=== PATIENT | male | born 1960 | race Hispanic/Latino ===

== ENCOUNTER 2025-04-01 00:39 | Inpatient (IN) | payer MEDICARE, SELFPAY ==
[2025-03-31 17:22] VITALS: BP 141/87
[2025-03-31 17:40] LABS: % Basophils 0.3 % (0-2); % Eosinophils 0.2 % (0-6); % Immature Granulocytes 0.3 % (0-0.5); % Lymphocytes 8.5 % (20.5-51.1); % Monocytes 10.7 % (1.7-9.3); Absolute Monocytes 1.2 10^3/uL (0.1-0.6); Absolute Neutrophils 9.2 10^3/uL (1.4-6.5); Hemoglobin 14.4 g/dL (13.0-18.0); Mean Corp Hgb Conc. 32.7 g/dL (33.0-37.0); Mean Corpuscular Hgb 29.3 pg (27.0-31.0); Mean Corpuscular Volume 89.6 fL (80.0-94.0); Mean Platelet Volume 10.2 fL (7.4-10.4); Nucleated Red Blood Cells % 0 % (-); Platelet Count 218 10^3/uL (130-400); Red Blood Cell Count 4.91 10^6/uL (4.70-6.10); Red Cell Dist. Width 13.1 % (11.5-14.5); White Blood Cell Count 11.5 10^3/uL (4.8-10.8)
[2025-03-31 18:05] LABS: ALT (SGPT) 23 U/L (0-50); AST (SGOT) 22 U/L (17-59); Albumin 4.2 g/dl (3.5-5.0); Alkaline Phosphatase 53 U/L (38-126); Blood Urea Nitrogen 18 mg/dl (9-20); Calcium 9.3 mg/dl (8.4-10.2); Carbon Dioxide 26 mmol/L (22-30); Chloride 106 mmol/L (98-107); Glucose 106 mg/dl (70-99); Sodium 138 mmol/L (135-145); Total Protein 6.8 g/dl (6.3-8.2); eGFR > 60.00
[2025-03-31 19:12] VITALS: BP 131/81
--- NOTE | 2025-03-31 21:13 | ED.GENMED ---
History of Present Illness
General
Chief Complaint: Skin Problem
Source: patient
Time Seen by Provider: 03/31/25 20:37
History of Present Illness
History of Present Illness:
64-year-old male presents to the emergency room complaining of pain, redness, swelling of his right lower extremity. Patient suffered a laceration about a week ago which he did not seek care for. Approximately 4 days ago he began having some
redness and swelling of the lower extremity. This redness and swelling has now spread to involve the entire calf and up to his knee. Patient endorses some chills. He has significant discomfort while trying to weight-bear on the right leg. He
denies any nausea or vomiting. He denies any medication allergies.
Phy Exam
Physical Exam
Physical Exam:
General: Awake, Alert, Oriented X3. No acute distress.
Vitals: unremarkable
Head: Atraumatic
Eyes: Pupils equal, EOMI
Throat: Airway intact, no exudates
Neck: Trachea midline
Lungs: Clear and equal b/l
Heart: Regular rate, no murmurs
Abd: Soft, Nontender, No pulsatile mass
Neuro: Nonfocal
Skin: Warm, dry, no rash
Extremities: pulses equal b/l, significant erythema, swelling and tenderness to palpation right lower extremity. There is a approximate 1.5 cm healing laceration noted on the medial lower leg about 3 cm above the ankle. No purulent drainage. No
fluctuance noted.
Sepsis
Sepsis Screening
Sepsis Assessment: Sepsis
Sepsis Screen
Sepsis Screen: Sepsis
Date: 04/01/25
Time: :25
Course
Orders/Labs/Results
Orders:
Orders
03/31/25 17:31
CMP [Comprehensive Metabolic Panel] Urgent
Complete Blood Count/With Diff Urgent
03/31/25 21:11
CeFAZolin 2 GRAM [Ancef] 2 grams in 10 ml IV NOW
03/31/25 21:13
US Periph Venous LOWER Ext RT Urgent
Comment:
Reason For Exam: swelling/pain
03/31/25 21:16
Lactic Acid Q4H
Comment: CANCEL 2nd LACTIC ACID IF 1st LACTIC ACID IS LESS THAN 2
Blood Culture Q30M
BAILEY Source: Blood/Venous
Specimen Description:
Blood Culture Q30M
BAILEY Source: Blood/Venous
Specimen Description:
03/31/25 21:19
Acetaminophen [Tylenol] 1,000 mg PO NOW STA
03/31/25 23:00
Flush (0.9% Sodium Chloride) [Flush (Nss)] See Dose Instructions IV PER PROTOCOL
03/31/25 23:16
Tetanus/Diphth/Acelpertussis [Adacel] 0.5 ml IM .ONCE ONE
03/31/25 23:18
Admit/Transfer Patient As Directed
Co-Sign Provider:
Level of Care: Inpatient admission
Assign to:: Medical/Surgical
Physician / Group: Luis
Diagnosis: Cellulitis
Reason for Hospitalization: Cellulitis
Expected length of stay greater than two midnights?: Yes
ELOS- Estimated Length of Stay in days: 2
I certify the patient meets the requirements for IP care: Yes
PRN Pain Medication Management As Directed
May give lesser potent ordered pain med per pt: Yes
preference::
Protocol:: Medication orders for pain may be administered in a
manner that supports deferring to patient preference
when the pt is:
- Requesting an ordered lesser potent pain medication.
Least to most potent pain medications are defined
as: acetaminophen < NSAID < tramadol < opioids
(morphine, oxycodone, hydromorphone).
- Requesting a lesser dose of the same medication IF
ORDERED.
- Requesting a less intrusive route of administration
if both routes are prescribed by the provider (PO <
IV).
03/31/25 23:19
Code Status As Directed
Resuscitation Status: Full Code
04/01/25 00:46
Acetaminophen [Tylenol] 650 mg PO Q4HPRN PRN
Ketorolac [Toradol] 15 mg IV Q6HPRN PRN
Lactated Ringers [Lr] 1,000 ml IV 125 mls/hr
04/01/25 00:46
Activity As Directed
Activity Level: Ambulate
I/O [Intake/ Output] As Directed
Frequency: Per unit guidelines
Vital Signs As Directed
Frequency: Per unit guidelines
DX Deep Vein Thrombosis Video Routine
04/01/25 Breakfast
Regular
At Your Request: Full Participation
Does patient need a safe tray?: No
Basic Metabolic Panel IN AM
Complete Blood Count/No Diff IN AM
CeFAZolin 2 GRAM [Ancef] 2 grams in 10 ml IV Q8H
04/01/25 18:00
Enoxaparin Sodium [Lovenox] 40 mg SC QPM
Abnormal Lab Results
03/31/25
17:31
WBC 11.5 H 10^3/uL
(4.8-10.8)
MCHC 32.7 L g/dL
(33.0-37.0)
Absolute Neuts (auto) 9.2 H 10^3/uL
(1.4-6.5)
Absolute Lymphs (auto) 1.0 L 10^3/uL
(1.2-3.4)
Absolute Monos (auto) 1.2 H 10^3/uL
(0.1-0.6)
Neutrophils % 80.0 H %
(42.2-75.2)
Lymphocytes % 8.5 L %
(20.5-51.1)
Monocytes % 10.7 H %
(1.7-9.3)
Glucose 106 H mg/dl
(70-99)
Total Bilirubin 2.0 H mg/dl
(0.2-1.3)
03/31/25 17:31
03/31/25 17:31
Vital Signs
Initial and Last Documented VS:
Initial Vital Signs
Temp Pulse Resp BP Pulse Ox
98.8 F 83 18 141/87 100
03/31/25 17:22 03/31/25 17:22 03/31/25 17:22 03/31/25 17:22 03/31/25 17:22
Last Documented Vital Signs
Temp Pulse Resp BP Pulse Ox
98.8 F 73 16 120/73 100
04/01/25 01:02 04/01/25 01:02 04/01/25 01:02 04/01/25 01:02 04/01/25 01:02
MDM/Problems Addressed
Differential Diagnosis Includes:
cellulitis, sepsis, dvt
MDM/Problems Addressed:
Patient presents with significant erythema, swelling and tenderness of the right lower extremity. DVT studies negative. Presentation most consistent with cellulitis/erysipelas. Patient has lymphangitis noted all way up to the groin. He has
rigors at the time of my evaluation. Labs show mildly elevated white blood cell count. Chemistries are unremarkable. Given fever, rigors will hospitalize for IV antibiotics.
*Radiology
Radiology exam reviewed: radiology read reviewed
*Pulse Oximetry
Patient hypoxic: no
*Critical Care Note
Total Time (30-74mins, 75-104mins- exclusive of procedures): Not Applicable
ED Attending Note
-
Portions of this chart may have been created with voice recognition software.� Occasional wrong word or��sound alike� substitutions may have occurred due to the inherent limitations of voice recognition software.
Discharge Plan
Departure
Patient Disposition: Admit
Date of Disposition: 03/31/25
Time of Disposition: 22:33
Admit to: Med/Surg
Presentation/result/management discussed w/ accepting MD/DO: Hospitalist
Condition: Fair
Discharge Problem:
Cellulitis, Sepsis
Interventions
Interventions:
*Risk Screen - Suicide Last Done: 03/31/25 17:22
*General Assessment Last Done: 03/31/25 17:22
*Neglect/Abuse Screening Last Done: 03/31/25 21:18
*ED- Fall Risk Assessment Last Done: 03/31/25 21:18
*ED COVID-19 Vaccine History Last Done: 04/01/25 00:47
*Nursing Disposition Last Done: 04/01/25 00:30
ED-Skin Assessment Last Done: 03/31/25 21:24
Discharge Date and Time
Discharge Date/Time: 04/01/25 00:30
[2025-03-31 21:14] VITALS: BMI 31.2
[2025-03-31] MEDS: TYLENOL 1000 MG PO (21:21)
[2025-03-31 21:38] LABS: Lactic Acid 1.4 mmol/L (0.7-2.0)
[2025-03-31 21:53] VITALS: BP 133/69
[2025-03-31] MEDS: ANCEF 10 IV (21:53)
[2025-03-31 22:00] VITALS: BP 115/73
[2025-03-31 23:00] VITALS: BP 117/62
--- NOTE | 2025-03-31 23:22 | HPS.HSE ---
Family Physician
-
Family Physician: * NONE
Chief Complaint
-
RLE pain, swelling, redness.
History of Present Illness
Patient is a 64y M with no significant PMH who presents to ED complaining of RLE pain, swelling and redness. Patient states that he bumped his leg on a piece of metal in his barn last Friday. He suffered a small laceration to the medial aspect
of the R lower leg at that time. Over the weekend, he noted increased pain in the lower leg / calf area. His pain progressed such that he had difficulty walking early this week. He reports development of shaking chills / cold sweats. Today,
patient presented to the Urgent Care for further evaluation. After exam, he was referred to the ED for further evaluation.
Medical History
Past Medical History
Past Medical History: Reports None
Past Surgical History: Reports None
Social History
Tobacco: Former Smoker (Quit smoking 30 years ago.)
Alcohol: Occasional (Rare.)
Drug: None
Family History
Family History: Not pertinent
Allergies / Home Medications
Allergies reflects when Allergies were last updated in [facility].
Home Medications with original date entered in [facility]
Allergy/Medication List:
Allergies
Allergy/AdvReac Type Severity Reaction Status Date / Time
Penicillins Allergy Unknown Verified 03/31/25 17:23
Home Medications
No Meds [No Current Medications] 03/31/25
Review of Systems
-
History Source: Patient
A 12 point ROS was completed and negative except as noted: Yes
Constitutional: Reports Fever and Chills; Denies Fatigue
Respiratory: Denies Cough or Trouble Breathing
Cardiac: Denies Chest Pain or Palpitations
Abdomen/GI: Denies Abdominal Pain, Nausea, Vomiting or Diarrhea
: Denies Dysuria or Frequency
Musculoskeletal: Reports Edema; Denies Joint Pain
Skin: Reports Other (Swelling / pain / streaking redness RLE)
Psych: Denies Depression or Anxiety
Physical Exam
Vital Signs
Vital Signs
Temp Pulse Resp BP Pulse Ox
99.9 F 87 18 117/62 96
03/31/25 23:19 03/31/25 23:00 03/31/25 23:00 03/31/25 23:00 03/31/25 22:00
Physical Exam
General: Other (64y M in no acute distress.)
HEENT: Other (Dry MM. Neck supple.)
Respiratory: Clear; No Wheezes, Rales or Rhonchi
Cardiac: S1/S2 and Regular Rhythm; No Murmur
Musculoskeletal: Other (Edema / tenderness R calf.)
Skin: Other (Erythema RLE encompassing the calf and with lymphangitis along the posterio-medial aspect of the leg all the way to the R groin. Pos local adenopathy. 3cm healing laceration medial R lower leg - no bleeding / discharge.)
Laboratory Results
-
03/31/25 17:31
03/31/25 17:31
Laboratory Results
Lactic Acid 1.4 mmol/L (0.7-2.0) 03/31/25 21:16
Total Bilirubin 2.0 mg/dl (0.2-1.3) H 03/31/25 17:31
AST 22 U/L (17-59) 03/31/25 17:31
ALT 23 U/L (0-50) 03/31/25 17:31
Alkaline Phosphatase 53 U/L (38-126) 03/31/25 17:31
Impression/Plan
-
A/P: Patient is a 64y M with no significant PMH who presents to ED complaining of RLE pain, swelling and redness that has been progressing over the past week.
RLE Cellulitis with Lymphangitis - secondary to laceration
Sepsis secondary to the above
- Admit for further evaluation and treatment.
- Patient presents with fever, tachycardia, tachypnea, leukocytosis and evident cellulitis of the RLE on exam.
- IV abx with Ancef and follow for clinical improvement.
- Update tetanus booster given preceding laceration on unidentified piece of metal in his barn.
- Supportive care including IVFs, pain control, etc.
- US in the ED negative for DVT.
- Consider advanced imaging of the LE if symptoms worsen or persist.
DVT Prophylaxis: Lovenox
Code Status: Full
[2025-03-31] MEDS: ADACEL 0.5 ML IM (23:23)
[2025-04-01] MEDS: LR 1000 IV ×2 (01:00→08:18)
[2025-04-01 01:02] VITALS: BP 120/73
--- NOTE | 2025-04-01 01:19 | TRANSFER ---
rec'd pt from ED at 0100. pt ambulated from stretcher to bed with assistance. pt c/o pain to R leg when ambulating, currently 01/10. pt AAOx3, VSS , call [facility] within reach. POC ongoing.
[2025-04-01 04:01] VITALS: BMI 28.0
[2025-04-01] MEDS: ANCEF 10 IV ×3 (05:08→21:48)
[2025-04-01] MEDS: TYLENOL 650 MG PO ×2 (06:36→21:48)
[2025-04-01 06:39] LABS: Hematocrit 38.5 % (39.0-52.0); Hemoglobin 12.8 g/dL (13.0-18.0); Mean Corp Hgb Conc. 33.2 g/dL (33.0-37.0); Mean Corpuscular Hgb 29.2 pg (27.0-31.0); Mean Corpuscular Volume 87.9 fL (80.0-94.0); Mean Platelet Volume 10.4 fL (7.4-10.4); Platelet Count 192 10^3/uL (130-400); Red Blood Cell Count 4.38 10^6/uL (4.70-6.10); Red Cell Dist. Width 13.1 % (11.5-14.5)
[2025-04-01 07:02] LABS: Blood Urea Nitrogen 15 mg/dl (9-20); Calcium 8.8 mg/dl (8.4-10.2); Carbon Dioxide 21 mmol/L (22-30); Chloride 108 mmol/L (98-107); Estimated Creatinine Clearance 94 ml/min; Glucose 121 mg/dl (70-99); Sodium 136 mmol/L (135-145); eGFR > 60.00
[2025-04-01 08:14] VITALS: BP 122/66
[2025-04-01 08:19] LABS: ALT (SGPT) 17 U/L (0-50); AST (SGOT) 18 U/L (17-59); Albumin 3.4 g/dl (3.5-5.0); Alkaline Phosphatase 47 U/L (38-126); Direct Bilirubin 0.3 mg/dl (0.0-0.4); LDH 145 U/L (120-246); Total Bilirubin 1.6 mg/dl (0.2-1.3); Total Protein 5.9 g/dl (6.3-8.2)
--- NOTE | 2025-04-01 10:24 | W.PN.HOSP.TC ---
Today's Communication/Plan
-
see PN
Assessment / Plan
Assessment / Plan
64yo M with no significant PMHx came with 1 week of progressive RLE swelling and redness after superfiscial trauma to the R calf
A/P:
#RLE cellulitis with thrombophlebitis with sepsis on admission 2/2 fever, leukocytosis and tachycardia
appears non-purulent
US neg for DVT
ordered soft tissue RLE US to eval for complications (abscess)
Cont Ancef as patient improving
Follow CBC and fever curve
BCX NTD
DVT ppx lovenox
Full code
I have spent at least 38min reviewing chart, test results and providing direct patient care
Anticipated Discharge: 24 - 48 hours
Subjective/Interval History
-
Date of Service: April 01, 2025
Objective Data
-
Labs:
Laboratory Results
04/01/25
06:12
WBC 10.0
Hgb 12.8 L
Hct 38.5 L
Plt Count 192
Sodium 136
Potassium 4.0
Chloride 108 H
Carbon Dioxide 21 L
BUN 15
Creatinine 0.8
Glucose 121 H
Calcium 8.8
Total Bilirubin 1.6 H
AST 18
ALT 17
Alkaline Phosphatase 47
Vital Signs:
Vital Signs
Temp Pulse Resp BP Pulse Ox
98.5 F 81 18 122/66 96
04/01/25 08:14 04/01/25 08:14 04/01/25 08:14 04/01/25 08:14 04/01/25 08:14
I&O
03/31/25 04/01/25 04/02/25
06:59 06:59 06:59
Intake Total 1355 / 1355 240 / 240
Balance 1355 / 1355 240 / 240
Review of Systems
-
History Source: Patient
All other systems: Reviewed and negative
Musculoskeletal: Reports Other (RLE swelling, pain and redness)
Physical Exam
-
General: No Apparent Distress
HEENT: Normocephalic
Skin: Other (RLE swelling with extension of cord like redness to the upper thigh)
Neuro: Awake, Alert, Oriented and AO x 3
Psych: Calm
[2025-04-01 15:47] VITALS: BP 124/64
[2025-04-01] MEDS: LOVENOX SC (17:41)
[2025-04-01 23:34] VITALS: BP 130/66
[2025-04-02] MEDS: ANCEF 10 IV (05:36)
[2025-04-02 07:00] VITALS: BP 127/66
--- NOTE | 2025-04-02 09:16 | PHA.VAN.IN ---
Assessment
- Assessment
Renal Function: Appears similar to baseline
Concomitant Antimicrobials: cefazolin
AUC Dosing Plan
- Dosing Variables
Dosing Weight (kg): 88
Dosing CrCl (ml/min): 94
Vd coefficient (L/kg): 0.7
- Empiric Dosing
Initial / Loading Dose: 2000mg - administration pending
Maintenance Regimen: Vanc 1250mg Q12H - starting at 1800
Estimated AUC (mcg*h/mL): 523
Estimated Peak (mcg*h/mL): 32
Estimated Trough (mcg/ml): 13.6
Estimated Half Life (H): 8.4
- Monitoring
No levels ordered at this time: consider levels in next few days
Pharmacokinetics Vancomycin I
- -
Patient Age: 64
Patient Sex: Male
Vancomycin Day #: 1
Indication: Skin And Soft Tissue
Requesting Provider: Dr. Leon
Pertinent Antimicrobial Allergies:
penicillins - unknown
Height / Weight:
Height 5 ft 10 in
Actual Weight 88.36 kg
- Vital Signs / Lab Results
Temp Pulse Resp BP Pulse Ox
99.3 F 72 16 127/66 95
04/02/25 07:00 04/02/25 07:00 04/02/25 07:00 04/02/25 07:00 04/02/25 07:00
Lab Results - Hematology
03/31/25 04/01/25
17: 06:12
WBC 11.5 H 10.0
Lab Results - Chemistry
03/31/25 04/01/25
17: 06:12
BUN 18 15
Creatinine 1.0 0.8
Estimated Creat Clear 94
Albumin 4.2 3.4 L
03/31/25 04/01/25
21:16 01:15
Lactic Acid 1.4 Cancelled
Microbiology Results
03/31/25 21:16 Blood Culture - Preliminary
Blood/Venous No Growth in 24 hours- Final report to follow
03/31/25 21:16 Blood Culture - Preliminary
Blood/Venous No Growth in 24 hours- Final report to follow
[2025-04-02] MEDS: TYLENOL 650 MG PO ×2 (09:36→17:48)
[2025-04-02] MEDS: VANCOCIN 540 MG IV (10:53)
[2025-04-02] MEDS: OCEAN, SALINE MIST 2 SPRAYS NASAL (11:00)
--- NOTE | 2025-04-02 12:54 | W.PN.HOSP.TC ---
Today's Communication/Plan
-
switch to Vanco
Assessment / Plan
Assessment / Plan
64yo M with no significant PMHx came with 1 week of progressive RLE swelling and redness after superfiscial trauma to the R calf
A/P:
#RLE cellulitis with thrombophlebitis with sepsis on admission 2/2 fever, leukocytosis and tachycardia
appears non-purulent, poor responce to Ancef - switch to Vanco
No signs of compartment syndrome
US neg for DVT
soft tissue RLE US ruled out complications (abscess)
Cont Ancef as patient improving
Follow CBC and fever curve
BCX NTD
DVT ppx lovenox
Full code
I have spent at least 58min reviewing chart, test results and providing direct patient care
Anticipated Discharge: 24 - 48 hours
Subjective/Interval History
-
Date of Service: April 02, 2025
Objective Data
-
Vital Signs:
Vital Signs
Temp Pulse Resp BP Pulse Ox
99.3 F 72 16 127/66 95
04/02/25 07:00 04/02/25 07:00 04/02/25 07:00 04/02/25 07:00 04/02/25 07:00
I&O
04/01/25 04/02/25 04/03/25
06:59 06:59 06:59
Intake Total 1355 / 1355 1200 / 1200
Balance 1355 / 1355 1200 / 1200
Review of Systems
-
History Source: Patient
All other systems: Reviewed and negative
Physical Exam
-
General: No Apparent Distress
HEENT: Normocephalic
Respiratory: Clear to Auscultation
Cardiac: Regular Rhythm
GI: Soft, Nontender and Nondistended
Skin: Other (RLE redness)
Neuro: Awake, Alert, Oriented and AO x 3
[2025-04-02 15:00] VITALS: BP 112/63
[2025-04-02] MEDS: VANCOCIN 275 MG IV (17:37)
[2025-04-02] MEDS: LOVENOX 40 MG SC (17:39)
[2025-04-02 23:15] VITALS: BP 132/68
[2025-04-03] MEDS: VANCOCIN 275 MG IV (05:20)
[2025-04-03] MEDS: TYLENOL 650 MG PO ×3 (05:35→21:46)
[2025-04-03 07:24] VITALS: BP 99/64
[2025-04-03 08:00] LABS: % Basophils 0.5 % (0-2); % Eosinophils 1.4 % (0-6); % Immature Granulocytes 0.3 % (0-0.5); % Monocytes 9.8 % (1.7-9.3); Absolute Eosinophils 0.1 10^3/uL (0-0.7); Absolute Lymphocytes 0.8 10^3/uL (1.2-3.4); Absolute Monocytes 0.7 10^3/uL (0.1-0.6); Absolute Neutrophils 5.1 10^3/uL (1.4-6.5); Hematocrit 35.4 % (39.0-52.0); Hemoglobin 11.6 g/dL (13.0-18.0); Mean Corp Hgb Conc. 32.8 g/dL (33.0-37.0); Mean Corpuscular Volume 88.5 fL (80.0-94.0); Mean Platelet Volume 10.6 fL (7.4-10.4); Nucleated Red Blood Cells % 0 % (-); Platelet Count 228 10^3/uL (130-400); Red Cell Dist. Width 13.1 % (11.5-14.5); White Blood Cell Count 6.7 10^3/uL (4.8-10.8)
[2025-04-03 08:36] LABS: ALT (SGPT) 105 U/L (0-50); AST (SGOT) 120 U/L (17-59); Alkaline Phosphatase 50 U/L (38-126); Blood Urea Nitrogen 16 mg/dl (9-20); Calcium 8.5 mg/dl (8.4-10.2); Carbon Dioxide 23 mmol/L (22-30); Chloride 109 mmol/L (98-107); Estimated Creatinine Clearance 94 ml/min; Glucose 153 mg/dl (70-99); Sodium 137 mmol/L (135-145); Total Bilirubin 0.8 mg/dl (0.2-1.3); Total Protein 5.3 g/dl (6.3-8.2); eGFR > 60.00
[2025-04-03 09:29] VITALS: BP 111/68
--- NOTE | 2025-04-03 10:10 | PHA.VAN.FU ---
Vancomycin Assessment / Plan
- Assessment
Renal Function: Stable
WBC's are: WNL
In the past 24 hrs, patient has been: Afebrile
- Dosing Plan
Continue: Vanc 1250mg Q12H
- Monitoring Plan
No level(s) ordered at this time: consider levels in next few days
- Follow Up
Pharmacy will continue to follow.
Vancomycin Follow UP
- -
Patient Age: 64
Patient Sex: Male
Vancomycin Day #: 2
Indication: Skin And Soft Tissue
Requesting Provider: Dr. Leon
Pertinent Antimicrobial Allergies:
penicillins - unknown
Height / Weight:
Height 5 ft 10 in
Actual Weight 88.36 kg
- Vital Signs / Lab Results
Temp Pulse Resp BP Pulse Ox
98.2 F 63 16 111/68 97
04/03/25 09:29 04/03/25 09:29 04/03/25 09:29 04/03/25 09:29 04/03/25 07:24
Lab Results - Hematology
03/31/25 04/01/25 04/03/25
17:31 06:12 06:42
WBC 11.5 H 10.0 6.7
Lab Results - Chemistry
03/31/25 04/01/25 04/03/25
17:31 06:12 06:42
BUN 18 15 16
Creatinine 1.0 0.8 0.8
Estimated Creat Clear 94 94
Albumin 4.2 3.4 L 3.0 L
03/31/25 04/01/25
21:16 01:15
Lactic Acid 1.4 Cancelled
Microbiology Results
03/31/25 21:16 Blood Culture - Preliminary
Blood/Venous No Growth in 48 hours- Final report to follow
03/31/25 21:16 Blood Culture - Preliminary
Blood/Venous No Growth in 48 hours- Final report to follow
04/01/25 06:22 MRSA Screen - Final
Nose No Methicillin Resistant Staphylococcus aureus isolated.
[2025-04-03 10:52] LABS: Creatine Phosphokinase 30 U/L (55-170)
--- NOTE | 2025-04-03 12:05 | CON.ID ---
Consultation
-
Date/Time Consultation Requested: April 03, 2025 1131
Date/Time Consultation Performed: April 03, 2025 1215
Requesting Provider: Dr. Hung Leon
Performing Provider: Dr. Anahy Garza
Reason for Consultation: Cellulitis not improving
Chief Complaint / Past History
Chief Complaint
Right leg swelling and redness
History of Present Illness
64-year-old male without past medical history who presented to the hospital on March 31 due to right leg edema and erythema. He states that on March 25, he banged his right lovett against a metal object in the barn. He had a small scrape. He
was fine until March 31 when his right leg became very swollen and red. The redness spread from the leg up his groin. He had chills. He went to urgent care who sent him to the ER. In the ER he was febrile 103.2. White count 11.5. Blood
cultures negative to date. Peripheral vascular ultrasound no DVT. Initially he was on cefazolin x 2 days without improvement, then changed to vancomycin yesterday. Today the redness continued to expand outside of the marked line. He did receive
tetanus vaccine in the hospital. He reports no animals in the barn. The barn stored equipments.
Past History
Past Medical History: None
Past Surgical History: None
Allergy History:
Penicillins Allergy (Verified 03/31/25 17:23)
Unknown
Medications Reviewed: Yes
Current Antibiotics:
Cefazolin (03/31-04/01)
Vancomycin d2
Social History
Tobacco: Former Smoker
Alcohol: Occasional
Drug: None
Family History
Family History: Not Pertinent
Review of Systems
Review of Systems
General: Chills; Negative Change in Appetite
HEENT: Sinus Problems; Negative Headache or Pharyngitis
Cardiovascular: Negative Chest Pain
Respiratory: Negative Dyspnea or Cough
Gasteroenterology: Negative Nausea, Vomiting or Diarrhea
Genital / Urological: Negative Flank Pain
Neurological: Negative Dizziness
All systems: All other systems were reviewed and were negative
Vital Signs
Temp Pulse Resp BP Pulse Ox
98.2 F 63 16 111/68 97
04/03/25 09:29 04/03/25 09:29 04/03/25 09:29 04/03/25 09:29 04/03/25 07:24
Physical Exam
Physical Exam
Constitutional: Non-toxic
Head: Other (No frontal or max or sinus tenderness)
Eyes: No Conjunctival Hemorrhage and Sclera Anicteric
Cardiovascular: Regular Rate and S1/S2
Pulmonary: Clear
Gastrointestinal: Soft, Non Tender, Non Distended and Normal Bowel Sounds
Genito-Urinary: Negative Suprapubic Tenderness or CVA Tenderness
Extremities: Edema (RLE 3+ edema), Erythema (RLE bright erythema from ankle up the knee to groin, erythema extending past marked line on thigh) and Other (Right medial calf with small scab)
Neurological: AO x 3
Lab / Diagnostic Study Results
04/03/25 06:42
04/03/25 06:42
Abs Immat Gran (auto) 0.0 10^3/uL (0-0.05) 04/03/25 06:42
Absolute Neuts (auto) 5.1 10^3/uL (1.4-6.5) 04/03/25 06:42
Absolute Lymphs (auto) 0.8 10^3/uL (1.2-3.4) L 04/03/25 06:42
Absolute Monos (auto) 0.7 10^3/uL (0.1-0.6) H 04/03/25 06:42
Absolute Basos (auto) 0.0 10^3/uL (0-0.2) 04/03/25 06:42
Immature Gran % 0.3 % (0-0.5) 04/03/25 06:42
Neutrophils % 76.0 % (42.2-75.2) H 04/03/25 06:42
Lymphocytes % 12.0 % (20.5-51.1) L 04/03/25 06:42
Monocytes % 9.8 % (1.7-9.3) H 04/03/25 06:42
Eosinophils % 1.4 % (0-6) 04/03/25 06:42
Basophils % 0.5 % (0-2) 04/03/25 06:42
Lactic Acid Cancelled 04/01/25 01:15
Microbiology Results
Micro:
03/31/25 21:16 Blood Culture - Preliminary
Blood/Venous No Growth in 48 hours- Final report to follow
03/31/25 21:16 Blood Culture - Preliminary
Blood/Venous No Growth in 48 hours- Final report to follow
04/01/25 06:22 MRSA Screen - Final
Nose No Methicillin Resistant Staphylococcus aureus isolated.
04/03/25 CXR: No radiographic evidence for pneumonia.
04/01/25 RLE US: VERY SEVERE DIFFUSE SUBCUTANEOUS EDEMA in the right lower leg in the region of swelling.
03/31/25 periph vasc US: No sonographic evidence for right lower extremity deep venous thrombosis.
Assessment / Plan
# RLE severe cellulitis after small laceration injury from a piece of metal
# Fever resolved
- Received tetanus vaccine.
- Cellulitis worse
- DC vancomycin.
- Start linezolid 600 mg p.o. twice daily to cover for and Clostridium species Staph aureus and group A strep with toxin inhibition.
- Add cefepime 2 g IV every 8 hours for gram-negative coverage.
-Follow clinically.
--- NOTE | 2025-04-03 12:07 | W.PN.HOSP.TC ---
Addendum entered and electronically signed by Hung Leon MD 04/03/25 16:56:
#Transaminitis
2/2 Abx most likely
follow LFT
Original Note:
Today's Communication/Plan
-
CT RLE
ID consult
Assessment / Plan
Assessment / Plan
64yo M with no significant PMHx came with 1 week of progressive RLE swelling and redness after superficial trauma to the R calf
A/P:
#RLE cellulitis with thrombophlebitis with sepsis on admission 2/2 fever, leukocytosis and tachycardia
appears non-purulent, poor response to Ancef - switch to Vanco with worsening redness
No signs of compartment syndrome
US neg for DVT
soft tissue RLE US ruled out complications (abscess), however with no improvement in redness - CT RLE and ID consult
Cont Ancef as patient improving
Follow CBC and fever curve
BCX NTD
DVT ppx lovenox
Full code
I have spent at least 58min reviewing chart, test results and providing direct patient care
Anticipated Discharge: > 48 hours
Subjective/Interval History
-
Date of Service: April 03, 2025
Objective Data
-
Labs:
Laboratory Results
04/03/25
06:42
WBC 6.7
Hgb 11.6 L
Hct 35.4 L
Plt Count 228
Sodium 137
Potassium 4.0
Chloride 109 H
Carbon Dioxide 23
BUN 16
Creatinine 0.8
Glucose 153 H
Calcium 8.5
Total Bilirubin 0.8
AST 120 H
ALT 105 H
Alkaline Phosphatase 50
Vital Signs:
Vital Signs
Temp Pulse Resp BP Pulse Ox
98.2 F 63 16 111/68 97
04/03/25 09:29 04/03/25 09:29 04/03/25 09:29 04/03/25 09:29 04/03/25 07:24
I&O
04/02/25 04/03/25 04/04/25
06:59 06:59 06:59
Intake Total 1200 / 1200 1235 / 1235
Balance 1200 / 1200 1235 / 1235
Review of Systems
-
History Source: Patient
All other systems: Reviewed and negative
Skin: Reports Other (RLE pain and redness)
Physical Exam
-
General: No Apparent Distress
HEENT: Normocephalic
Respiratory: Clear to Auscultation
Cardiac: Regular Rhythm
Musculoskeletal: Other (RLE edema and redness)
Neuro: Awake, Alert, Oriented and AO x 3
Psych: Calm
[2025-04-03] MEDS: NSS 500 IV (12:33)
[2025-04-03] MEDS: OCEAN, SALINE MIST 2 SPRAYS NASAL (12:34)
[2025-04-03] MEDS: ZYVOX 600 MG PO ×2 (13:32→20:08)
[2025-04-03] MEDS: MAXIPIME 2000 MG IV ×2 (13:59→21:44)
[2025-04-03] MEDS: STERILE WATER FOR INJECTION 10 ML IV ×2 (13:59→21:44)
[2025-04-03 15:19] VITALS: BP 108/67
[2025-04-03] MEDS: LOVENOX SC (17:09)
[2025-04-03 23:10] VITALS: BP 118/66
[2025-04-04] MEDS: MAXIPIME 2000 MG IV ×3 (05:16→21:45)
[2025-04-04] MEDS: STERILE WATER FOR INJECTION 10 ML IV ×3 (05:17→21:45)
[2025-04-04 07:23] VITALS: BP 108/65
[2025-04-04 08:18] LABS: % Basophils 0.3 % (0-2); % Immature Granulocytes 0.5 % (0-0.5); % Lymphocytes 14.3 % (20.5-51.1); % Monocytes 9.8 % (1.7-9.3); % Neutrophils 73.1 % (42.2-75.2); Absolute Eosinophils 0.1 10^3/uL (0-0.7); Absolute Lymphocytes 0.9 10^3/uL (1.2-3.4); Absolute Monocytes 0.6 10^3/uL (0.1-0.6); Absolute Neutrophils 4.5 10^3/uL (1.4-6.5); Hematocrit 38.4 % (39.0-52.0); Hemoglobin 12.7 g/dL (13.0-18.0); Mean Corp Hgb Conc. 33.1 g/dL (33.0-37.0); Mean Corpuscular Hgb 29.4 pg (27.0-31.0); Mean Corpuscular Volume 88.9 fL (80.0-94.0); Mean Platelet Volume 10.1 fL (7.4-10.4); Nucleated Red Blood Cells % 0 % (-); Platelet Count 286 10^3/uL (130-400); Red Blood Cell Count 4.32 10^6/uL (4.70-6.10); Red Cell Dist. Width 13.1 % (11.5-14.5); White Blood Cell Count 6.1 10^3/uL (4.8-10.8)
[2025-04-04 08:46] LABS: ALT (SGPT) 161 U/L (0-50); AST (SGOT) 115 U/L (17-59); Albumin 3.2 g/dl (3.5-5.0); Alkaline Phosphatase 56 U/L (38-126); Blood Urea Nitrogen 14 mg/dl (9-20); Calcium 8.7 mg/dl (8.4-10.2); Carbon Dioxide 22 mmol/L (22-30); Chloride 110 mmol/L (98-107); Direct Bilirubin 0.2 mg/dl (0.0-0.4); Estimated Creatinine Clearance 94 ml/min; Glucose 111 mg/dl (70-99); Potassium 4.3 mmol/L (3.5-5.1); Sodium 138 mmol/L (135-145); Total Bilirubin 1.1 mg/dl (0.2-1.3); Total Protein 5.7 g/dl (6.3-8.2); eGFR > 60.00
[2025-04-04] MEDS: ZYVOX 600 MG PO ×2 (08:47→19:53)
--- NOTE | 2025-04-04 12:51 | W.PN.ID1 ---
Date of Service
Date of Service: April 04, 2025
Today's Communication
Continue linezolid and cefepime.
Assessment / Plan
# RLE severe cellulitis after small laceration injury from a piece of metal
# Fever resolved
- Received tetanus vaccine.
- Cellulitis stable today
- Start linezolid 600 mg p.o. twice daily (d2) to cover for Clostridium species, Staph aureus, and group A strep with toxin inhibition.
- Continue cefepime 2 g IV every 8 hours (d2) for gram-negative coverage.
-Follow clinically.
Subjective / Review of Systems
No complaints today
Vital Signs / Physical Exam
Vital Signs
Vital Signs
Temp Pulse Resp BP Pulse Ox
98.4 F 67 18 108/65 97
04/04/25 07:23 04/04/25 07:23 04/04/25 07:23 04/04/25 07:23 04/04/25 10:14
Physical Exam
Constitutional: No Acute Distress
Cardiovascular: Regular Rate and S1/S2
Pulmonary: Clear
Gastrointestinal: Soft and Non Tender
Extremities: Edema (RLE) and Erythema (RLE: bright erythema from ankle up to groin, no extending pass marked line, receding from groin.)
Objective Data
Lab Data
Lab Results
04/04/25 07:12
04/04/25 07:12
Estimated Creat Clear 94 ml/min 04/04/25 07:12
Lactic Acid Cancelled 04/01/25 01:15
Total Bilirubin 1.1 mg/dl (0.2-1.3) 04/04/25 07:12
AST 115 U/L (17-59) H 04/04/25 07:12
ALT 161 U/L (0-50) H 04/04/25 07:12
Alkaline Phosphatase 56 U/L (38-126) 04/04/25 07:12
Most recent labs reviewed.
Micro Results:
03/31/25 21:16 Blood Culture - Preliminary
Blood/Venous No Growth in 72 hours- Final report to follow
03/31/25 21:16 Blood Culture - Preliminary
Blood/Venous No Growth in 72 hours- Final report to follow
04/01/25 06:22 MRSA Screen - Final
Nose No Methicillin Resistant Staphylococcus aureus isolated.
04/03/25 CT RLE: Diffuse edematous change of the soft tissues of the right lower extremity. No evidence of abscess formation.
04/03/25 CXR: No radiographic evidence for pneumonia.
04/01/25 RLE US: VERY SEVERE DIFFUSE SUBCUTANEOUS EDEMA in the right lower leg in the region of swelling.
03/31/25 periph vasc US: No sonographic evidence for right lower extremity deep venous thrombosis.
--- NOTE | 2025-04-04 13:43 | W.PN.HOSP.TC ---
Today's Communication/Plan
-
cont abx
Assessment / Plan
Assessment / Plan
Physical Exam
Constitutional: No Acute Distress
Cardiovascular: Regular Rate and S1/S2
Pulmonary: Clear
Gastrointestinal: Soft and Non Tender
Extremities: Edema (RLE) and Erythema (RLE: bright erythema from ankle up to groin, no extending pass marked line, receding from groin.)
64yo M with no significant PMHx came with 1 week of progressive RLE swelling and redness after superficial trauma to the R calf
A/P:
#RLE cellulitis with thrombophlebitis with sepsis on admission 2/2 fever, leukocytosis and tachycardia
[place]
appears non-purulent, poor response to Ancef
-Continue linezolid 600 mg p.o. twice daily (d2) to cover for Clostridium species, Staph aureus, and group A strep with toxin inhibition.
-Continue cefepime 2 g IV every 8 hours (d2) for gram-negative coverage.
No signs of compartment syndrome
US neg for DVT
DVT ppx lovenox
Full code
Anticipated Discharge: 24 - 48 hours
Subjective/Interval History
-
Date of Service: April 04, 2025
Erythema and the dry appears to be improving
Objective Data
-
Labs:
Laboratory Results
04/04/25
07:12
WBC 6.1
Hgb 12.7 L
Hct 38.4 L
Plt Count 286 D
Sodium 138
Potassium 4.3
Chloride 110 H
Carbon Dioxide 22
BUN 14
Creatinine 0.8
Glucose 111 H
Calcium 8.7
Total Bilirubin 1.1
AST 115 H
ALT 161 H
Alkaline Phosphatase 56
Vital Signs:
Vital Signs
Temp Pulse Resp BP Pulse Ox
98.4 F 67 18 108/65 97
04/04/25 07:23 04/04/25 07:23 04/04/25 07:23 04/04/25 07:23 04/04/25 10:14
I&O
04/03/25 04/04/25 04/05/25
06:59 06:59 06:59
Intake Total 1235 / 1235 1440 / 1440
Balance 1235 / 1235 1440 / 1440
Review of Systems
-
History Source: Patient
All other systems: Not reviewed unless documented
Data Reviewed
-
Diagnostic Radiology: Report Reviewed by me
CT Scan: Report Reviewed by me
Labs: Labs Reviewed by me
[2025-04-04 15:09] VITALS: BP 115/62
--- NOTE | 2025-04-04 16:43 | CM ---
Alert awake oriented patient who lives alone his dad . He lives in a 2 story home with 2 step to enter and 10 steps to bed and bathroom. He is independent in driving and in all activities of daily living.He was offered VN he declined
need.Admission notified to add dgt Berna hsu .
No VN hx / No SNF history
Pharmacy [facility]
PCP DR Ankit Simon
PLAN Home Declined VN
[2025-04-04] MEDS: LOVENOX SC (17:09)
[2025-04-04] MEDS: TYLENOL 650 MG PO (21:53)
[2025-04-04 23:36] VITALS: BP 120/58
[2025-04-05] MEDS: MAXIPIME 2000 MG IV ×3 (05:20→21:04)
[2025-04-05] MEDS: STERILE WATER FOR INJECTION 10 ML IV ×3 (05:20→21:05)
[2025-04-05 07:35] VITALS: BP 117/70
[2025-04-05 07:42] LABS: Hematocrit 38.2 % (39.0-52.0); Hemoglobin 12.3 g/dL (13.0-18.0); Mean Corp Hgb Conc. 32.2 g/dL (33.0-37.0); Mean Corpuscular Hgb 29.1 pg (27.0-31.0); Mean Corpuscular Volume 90.5 fL (80.0-94.0); Mean Platelet Volume 9.9 fL (7.4-10.4); Platelet Count 302 10^3/uL (130-400); Red Blood Cell Count 4.22 10^6/uL (4.70-6.10); Red Cell Dist. Width 13.2 % (11.5-14.5); White Blood Cell Count 6.2 10^3/uL (4.8-10.8)
[2025-04-05] MEDS: TYLENOL 650 MG PO ×2 (08:07→19:41)
[2025-04-05] MEDS: ZYVOX 600 MG PO ×2 (08:07→19:41)
[2025-04-05 08:41] LABS: Blood Urea Nitrogen 16 mg/dl (9-20); Calcium 8.8 mg/dl (8.4-10.2); Carbon Dioxide 24 mmol/L (22-30); Chloride 108 mmol/L (98-107); Estimated Creatinine Clearance 75 ml/min; Glucose 111 mg/dl (70-99); Potassium 4.4 mmol/L (3.5-5.1); Sodium 138 mmol/L (135-145); eGFR > 60.00
--- NOTE | 2025-04-05 10:03 | W.PN.ID1 ---
Date of Service
Date of Service: April 05, 2025
Today's Communication
Continue abx's.
Assessment / Plan
# RLE severe cellulitis after small laceration injury from a piece of metal
# Fever resolved
- Received tetanus vaccine.
- Cellulitis improving
- Start linezolid 600 mg p.o. twice daily (d3) to cover for Clostridium species, Staph aureus, and group A strep with toxin inhibition.
- Continue cefepime 2 g IV every 8 hours (d3) for gram-negative coverage.
-JEANNETTE wrapp compression
-Follow clinically.
Chief Complaint
-: Cellulitis
Subjective / Review of Systems
leg feeling be.
Vital Signs / Physical Exam
Vital Signs
Vital Signs
Temp Pulse Resp BP Pulse Ox
97.5 F 62 18 117/70 95
04/05/25 07:35 04/05/25 07:35 04/05/25 07:35 04/05/25 07:35 04/05/25 07:35
Physical Exam
Constitutional: No Acute Distress and Comfortable
Cardiovascular: Regular Rate and S1/S2
Pulmonary: Clear
Gastrointestinal: Soft, Non Tender and Non Distended
Extremities: Edema (RLE decrease edema 2+) and Erythema (RLE erythema decreasing, receding from line.)
Neurological: AO x 3
Objective Data
Lab Data
Lab Results
04/05/25 06:22
04/05/25 06:22
Estimated Creat Clear 75 ml/min 04/05/25 06:22
Lactic Acid Cancelled 04/01/25 01:15
Total Bilirubin 1.1 mg/dl (0.2-1.3) 04/04/25 07:12
AST 115 U/L (17-59) H 04/04/25 07:12
ALT 161 U/L (0-50) H 04/04/25 07:12
Alkaline Phosphatase 56 U/L (38-126) 04/04/25 07:12
Most recent labs reviewed.
Micro Results:
03/31/25 21:16 Blood Culture - Preliminary
Blood/Venous No Growth in 4 days- Final report to follow
03/31/25 21:16 Blood Culture - Preliminary
Blood/Venous No Growth in 4 days- Final report to follow
04/01/25 06:22 MRSA Screen - Final
Nose No Methicillin Resistant Staphylococcus aureus isolated.
04/03/25 CT RLE: Diffuse edematous change of the soft tissues of the right lower extremity. No evidence of abscess formation.
04/03/25 CXR: No radiographic evidence for pneumonia.
04/01/25 RLE US: VERY SEVERE DIFFUSE SUBCUTANEOUS EDEMA in the right lower leg in the region of swelling.
03/31/25 periph vasc US: No sonographic evidence for right lower extremity deep venous thrombosis.
--- NOTE | 2025-04-05 13:32 | W.PN.HOSP.TC ---
Today's Communication/Plan
-
cont abx
Assessment / Plan
Assessment / Plan
Physical Exam
Constitutional: No Acute Distress
Cardiovascular: Regular Rate and S1/S2
Pulmonary: Clear
Gastrointestinal: Soft and Non Tender
Extremities: Edema (RLE) and Erythema (RLE: bright erythema from ankle up to groin, no extending pass marked line, receding from groin.)
64yo M with no significant PMHx came with 1 week of progressive RLE swelling and redness after superficial trauma to the R calf
A/P:
#RLE cellulitis with thrombophlebitis with sepsis on admission 2/2 fever, leukocytosis and tachycardia
-[place] himself [place] his [place]
appears non-purulent, poor response to Ancef
-Continue linezolid 600 mg p.o. twice daily (d2) to cover for Clostridium species, Staph aureus, and group A strep with toxin inhibition.
-Continue cefepime 2 g IV every 8 hours (d2) for gram-negative coverage.
No signs of compartment syndrome
US neg for DVT
DVT ppx lovenox
Full code
Anticipated Discharge: Within 24 hours
Subjective/Interval History
-
Date of Service: April 05, 2025
cellulitis improving
Objective Data
-
Labs:
Laboratory Results
04/05/25
06:22
WBC 6.2
Hgb 12.3 L
Hct 38.2 L
Plt Count 302
Sodium 138
Potassium 4.4
Chloride 108 H
Carbon Dioxide 24
BUN 16
Creatinine 1.0
Glucose 111 H
Calcium 8.8
Vital Signs:
Vital Signs
Temp Pulse Resp BP Pulse Ox
97.5 F 62 18 117/70 95
04/05/25 07:35 04/05/25 07:35 04/05/25 07:35 04/05/25 07:35 04/05/25 08:10
I&O
04/04/25 04/05/25 04/06/25
06:59 06:59 06:59
Intake Total 1440 / 1440 1200 / 1200
Balance 1440 / 1440 1200 / 1200
Review of Systems
-
History Source: Patient
All other systems: Not reviewed unless documented
Physical Exam
-
General: No Apparent Distress
HEENT: Normocephalic
Respiratory: Clear to Auscultation
Cardiac: Regular Rhythm
Musculoskeletal: Other (RLE edema and redness)
Neuro: Awake, Alert, Oriented and AO x 3
Psych: Calm
[2025-04-05 15:18] VITALS: BP 104/62
[2025-04-05] MEDS: LOVENOX SC (16:55)
[2025-04-05] MEDS: MAXIPIME IV (21:04)
[2025-04-05 23:29] VITALS: BP 115/63
[2025-04-06] MEDS: MAXIPIME 2000 MG IV (05:15)
[2025-04-06] MEDS: STERILE WATER FOR INJECTION 10 ML IV (05:15)
[2025-04-06 06:35] LABS: Hematocrit 39.8 % (39.0-52.0); Hemoglobin 12.9 g/dL (13.0-18.0); Mean Corp Hgb Conc. 32.4 g/dL (33.0-37.0); Mean Corpuscular Hgb 29.1 pg (27.0-31.0); Mean Corpuscular Volume 89.6 fL (80.0-94.0); Mean Platelet Volume 9.6 fL (7.4-10.4); Platelet Count 347 10^3/uL (130-400); Red Blood Cell Count 4.44 10^6/uL (4.70-6.10); White Blood Cell Count 6.9 10^3/uL (4.8-10.8)
[2025-04-06 06:58] LABS: Blood Urea Nitrogen 17 mg/dl (9-20); Calcium 8.9 mg/dl (8.4-10.2); Carbon Dioxide 25 mmol/L (22-30); Chloride 109 mmol/L (98-107); Estimated Creatinine Clearance 83 ml/min; Glucose 115 mg/dl (70-99); Potassium 4.5 mmol/L (3.5-5.1); Sodium 141 mmol/L (135-145); eGFR > 60.00
[2025-04-06] MEDS: ZYVOX 600 MG PO (08:24)
[2025-04-06 08:38] VITALS: BP 133/86
[2025-04-06] MEDS: TYLENOL 650 MG PO (09:52)
--- NOTE | 2025-04-06 10:22 | W.PN.ID1 ---
Date of Service
Date of Service: April 06, 2025
Today's Communication
- Continue Linezolid 600mg bid (d4) through 04/12/25.
Avoid tyramine-rich food products while on Linezolid.
- Can dc home
Assessment / Plan
# RLE severe cellulitis after small laceration injury from a piece of metal
# Fever resolved
- Received tetanus vaccine.
- Cellulitis much improved
- Can discontinue cefepime 2 g IV every 8 hours (d4)
- Continue Linezolid 600mg bid (d4) through 04/12/25.
Avoid tyramine-rich food products while on Linezolid.
- Can dc home
Chief Complaint
-: Cellulitis
Subjective / Review of Systems
Continues to feel improved.
Vital Signs / Physical Exam
Vital Signs
Vital Signs
Temp Pulse Resp BP Pulse Ox
98.7 F 67 18 133/86 98
04/06/25 08:38 04/06/25 08:38 04/06/25 08:38 04/06/25 08:38 04/06/25 08:38
Physical Exam
Constitutional: No Acute Distress and Comfortable
Cardiovascular: Regular Rate and S1/S2
Pulmonary: Clear
Gastrointestinal: Soft, Non Tender and Non Distended
Genito-Urinary: Negative CVA Tenderness
Extremities: Erythema (RLE milder, receding); Negative Edema (RLE decreasing)
Neurological: AO x 3
Objective Data
Lab Data
Lab Results
04/06/25 06:01
04/06/25 06:01
Estimated Creat Clear 83 ml/min 04/06/25 06:01
Lactic Acid Cancelled 04/01/25 01:15
Total Bilirubin 1.1 mg/dl (0.2-1.3) 04/04/25 07:12
AST 115 U/L (17-59) H 04/04/25 07:12
ALT 161 U/L (0-50) H 04/04/25 07:12
Alkaline Phosphatase 56 U/L (38-126) 04/04/25 07:12
Most recent labs reviewed.
Micro Results:
03/31/25 21:16 Blood Culture - Final
Blood/Venous No Growth - Final Report
03/31/25 21:16 Blood Culture - Final
Blood/Venous No Growth - Final Report
04/01/25 06:22 MRSA Screen - Final
Nose No Methicillin Resistant Staphylococcus aureus isolated.
04/03/25 CT RLE: Diffuse edematous change of the soft tissues of the right lower extremity. No evidence of abscess formation.
04/03/25 CXR: No radiographic evidence for pneumonia.
04/01/25 RLE US: VERY SEVERE DIFFUSE SUBCUTANEOUS EDEMA in the right lower leg in the region of swelling.
03/31/25 periph vasc US: No sonographic evidence for right lower extremity deep venous thrombosis.
Care Review
Plan reviewed with: Physician (Dr. Nieto)
--- NOTE | 2025-04-06 11:51 | W.PN.HOSP.TC ---
Addendum entered and electronically signed by Issa Nieto MD 04/06/25 15:19:
[id number]
Original Note:
Today's Communication/Plan
-
Avoid tyramine-rich food products while on Linezolid.
Linezolid 600mg bid (d4) through 04/12/25.
F/u CBC and BMP in 1 week with PCP
Assessment / Plan
Assessment / Plan
Physical Exam
Constitutional: No Acute Distress
Cardiovascular: Regular Rate and S1/S2
Pulmonary: Clear
Gastrointestinal: Soft and Non Tender
Extremities: Edema (RLE) and Erythema (RLE: bright erythema from ankle up to groin, no extending pass marked line, receding from groin.)
64yo M with no significant PMHx came with 1 week of progressive RLE swelling and redness after superficial trauma to the R calf
A/P:
#RLE cellulitis with thrombophlebitis with sepsis on admission 2/2 fever, leukocytosis and tachycardia
-[place] his [place]
appears non-purulent, poor response to Ancef
-Continue linezolid 600 mg p.o. twice daily (d4) until 04/12.
Avoid tyramine-rich food products while on Linezolid.
No signs of compartment syndrome
US neg for DVT
DVT ppx lovenox
Full code
More than 30 minutes spent in discharge including
Final examination of the patient
Summarizing hospital stay
Instructions for continuing care to all relevant caregivers
Preparation of discharge records, prescriptions, and referral forms
Total time spent (in minutes): 36
Anticipated Discharge: Today
Subjective/Interval History
-
Date of Service: April 06, 2025
erythema improved
Objective Data
-
Labs:
Laboratory Results
04/06/25
06:01
WBC 6.9
Hgb 12.9 L
Hct 39.8
Plt Count 347
Sodium 141
Potassium 4.5
Chloride 109 H
Carbon Dioxide 25
BUN 17
Creatinine 0.9
Glucose 115 H
Calcium 8.9
Vital Signs:
Vital Signs
Temp Pulse Resp BP Pulse Ox
98.7 F 67 18 133/86 98
04/06/25 08:38 04/06/25 08:38 04/06/25 08:38 04/06/25 08:38 04/06/25 08:45
I&O
04/05/25 04/06/25 04/07/25
06:59 06:59 06:59
Intake Total 1200 / 1200 1440 / 1440
Balance 1200 / 1200 1440 / 1440
Review of Systems
-
History Source: Patient
All other systems: Not reviewed unless documented
Data Reviewed
-
Diagnostic Radiology: Report Reviewed by me
CT Scan: Report Reviewed by me
Labs: Labs Reviewed by me
--- NOTE | 2025-04-06 11:53 | W.DS.TRANS ---
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
-
Discharge Instructions:
Discharge Diagnosis/Procedures # RLE severe cellulitis after small laceration
injury from a piece of metal
# Fever resolved
Diet Other diet
Additional Diets avoid tyramine-rich food products while on
Linezolid.
Blood Work cbc and cmp in 1 week with pcp
Instructions:
Stand-Alone Forms:
Changes to Home Medications: Yes
Discharge Medications:
DC Medications w/original date entered in [facility]
linezolid 600 mg tablet 600 mg PO BID 7 days #14 tabs 04/06/25
Home Medication Changes
linezolid 600 mg tablet 600 mg PO BID 7 days #14 tabs 04/06/25
Pending Results: No
--- NOTE | 2025-04-06 14:49 | CM ---
Patient left prior to CM being able to review discharge, no needs anticipated per chart review.
== END 2025-04-06 12:40 | disposition home or self-care (01) | DRG 872 ==
LOC: 4 EAST ACU 00:39
PROVIDERS: Emergency Medicine; Internal Medicine; ADMITTING PHYSICIAN Hospitalist; ATTENDING PHYSICIAN Internal Medicine; CONSULT PHYSICIAN Internal Medicine Infectious Disease; EMERGENCY PHYSICIAN Emergency Medicine
PROC: 3E0234Z Introduction of Serum, Toxoid and Vaccine into Muscle, Percutaneous Approach (ICD-10-PCS; 2025-03-31)
DX: A41.9 Sepsis, unspecified organism (principal); L03.115 Cellulitis of right lower limb; S81.811A Laceration without foreign body, right lower leg, initial encounter; Z87.891 Personal history of nicotine dependence; Z88.0 Allergy status to penicillin; Z23 Encounter for immunization; I80.251 Phlebitis and thrombophlebitis of right calf muscular vein
CPT/HCPCS: 71046; 73701; 76882; 80048; 80053; 82248; 82550; 83605; 83615; 85025; 85027; 85045; 87040; 87070; 90471; 90715; 93005; 93971; 96374; 99284; Q9967